=== PATIENT | male | born 1980 | race Caucasian/White ===

== ENCOUNTER 2021-02-12 20:06 | Emergency (ER) | payer OTHER ==
[~2021-02-12] VITALS: Ht 177.8 cm; Wt 86.4 kg
[~2021-02-12 20:06] MED LIST: CIPR-278 PO; FLUO15CR46 TP
[2021-02-12 20:32] VITALS: BP 145/67
== END 2021-02-12 21:00 | disposition left against medical advice (07) ==
LOC: EMS 20:11
DX: M79.604 Pain in right leg (principal); M79.605 Pain in left leg; Z53.21 Procedure and treatment not carried out due to patient leaving prior to being seen by health care provider

== ENCOUNTER 2021-03-05 05:22 | Emergency (ER) | payer OTHER ==
[~2021-03-05] VITALS: Ht 177.8 cm; Wt 86.4 kg
[2021-03-05 05:45] VITALS: BP 119/56
[2021-03-05] MEDS ORDERED: ACETAMINOPHEN 325 MG TABLET PO ONE (06:45)
== END 2021-03-05 07:02 | disposition home or self-care (01) ==
LOC: EMS 05:23
DX: M89.8X9 Other specified disorders of bone, unspecified site (principal); G89.29 Other chronic pain; I10 Essential (primary) hypertension; F17.210 Nicotine dependence, cigarettes, uncomplicated; F14.90 Cocaine use, unspecified, uncomplicated; F12.90 Cannabis use, unspecified, uncomplicated; F19.90 Other psychoactive substance use, unspecified, uncomplicated
CPT/HCPCS: 99282; Z7502; Z7610

== ENCOUNTER 2022-04-15 06:21 | Emergency (ER) | payer OTHER ==
[~2022-04-15] VITALS: Ht 177.8 cm; Wt 81.8 kg
[2022-04-15 07:00] LABS: BASOPHILS % (AUTO) 0.7 % (0.0-2.0); EOSINOPHILS % (AUTO) 6.3 % (1.0-6.0); HEMOGLOBIN 12.2 g/dL (13.5-17.5); LYMPHOCYTES # (AUTO) 2.1 K/uL (1.0-4.8); MEAN CORPUSCULAR VOLUME 88 fL (80-100); MONOCYTES # (AUTO) 0.6 K/uL (0.1-1.0); MONOCYTES % (AUTO) 6.2 % (2.0-9.0); NEUTROPHILS # (AUTO) 6.4 K/uL (1.8-7.7); NEUTROPHILS % (AUTO) 65.8 % (40.0-70.0); PLATELET COUNT (AUTO) 363 K/uL (150-450); RED BLOOD CELL COUNT(AUTO) 4.21 MIL/uL (4.50-5.90); RED CELL DISTRIBUTION WIDTH 13.7 % (11.5-14.5)
[2022-04-15 07:10] LABS: ANION GAP 6 mmol/L (8-16); CALCIUM, TOTAL 9.1 mg/dL (8.8-10.5); CARBON DIOXIDE 31 mmol/L (22-29); CHLORIDE 102 mmol/L (98-107); CREATININE 0.84 mg/dL (0.60-1.30); GLUCOSE,RANDOM 113 mg/dL (70-110); POTASSIUM 3.6 mmol/L (3.5-5.1); SODIUM SERUM 139 mmol/L (136-145); UREA NITROGEN, BLOOD 8 mg/dL (7-18)
[2022-04-15 07:11] LABS: GLOMERULAR FILTR. RATE CALC > 60 mL/min (>60)
[2022-04-15 07:41] LABS: ALANINE AMINOTRANSFERASE 55 U/L (12-78); ALBUMIN 3.4 g/dL (3.4-5.0); ALKALINE PHOSPHATASE 123 U/L (46-116); ASPARTATE AMINOTRANSFERASE 84 U/L (15-37); BILIRUBIN,TOTAL 0.3 mg/dL (0.1-1.0); CREATINE KINASE, TOTAL ONLY 92 U/L (39-308); LIPASE 106 U/L (73-393)
[2022-04-15 08:37] VITALS: BP 139/83
[2022-04-15 09:01] LABS: AMPHET/METH SCREEN,URINE POSITIVE (NEGATIVE); BARBITURATE SCREEN, URINE NEGATIVE (NEGATIVE); BENZODIAZEPINES SCREEN,URINE NEGATIVE (NEGATIVE); CANNABINOID SCREEN,URINE POSITIVE (NEGATIVE); COCAINE SCREEN,URINE POSITIVE (NEGATIVE); METHADONE SCREEN, URINE NEGATIVE (NEGATIVE); OPIATE SCREEN,URINE NEGATIVE (NEGATIVE)
[2022-04-15 09:02] LABS: PHENCYCLIDINE SCREEN,URINE NEGATIVE (NEGATIVE)
== END 2022-04-15 09:39 | disposition home or self-care (01) ==
LOC: EMS 06:21
DX: F14.10 Cocaine abuse, uncomplicated (principal); F15.10 Other stimulant abuse, uncomplicated; F12.90 Cannabis use, unspecified, uncomplicated; G89.18 Other acute postprocedural pain; F10.20 Alcohol dependence, uncomplicated; I10 Essential (primary) hypertension; F17.210 Nicotine dependence, cigarettes, uncomplicated; Z90.49 Acquired absence of other specified parts of digestive tract
CPT/HCPCS: 99284; 80053; 82550; 83605; 83690; 84484; 85025; 36415; 93005; 80307 ×2; G0480